=== PATIENT | male | born 1990 | race African-American/Black ===

== ENCOUNTER 2016-12-14 22:57 | Emergency (ER) | payer OTHER ==
[~2016-12-14] VITALS: Ht 185.4 cm; Wt 120.0 kg
[~2016-12-14 22:57] MED LIST: ATARAX,VISTARIL25 MG PO; ATIVAN1 MG PO; AUGMENTIN875 MG PO; BENTYL10 MG PO; MOTRIN800 MG PO; PAXIL20 MG PO; ZOFRAN ODT4 MG PO; ZOFRAN4 MG PO
[2016-12-15] MEDS ORDERED: PERCOCET 5/31 TABLET PO (00:40)
[2016-12-15 00:49] VITALS: BP 112/71
== END 2016-12-15 00:54 | disposition home or self-care (01) ==
LOC: EXP 22:57 → EME 22:57 → EXP 12-15 00:54
PROC: 3E0234Z Introduction of Serum, Toxoid and Vaccine into Muscle, Percutaneous Approach (ICD-10-PCS; principal; 2016-12-14)
DX: S50.812A Abrasion of left forearm, initial encounter (principal); S51.801A Unspecified open wound of right forearm, initial encounter; V29.9XXA Motorcycle rider (driver) (passenger) injured in unspecified traffic accident, initial encounter; F17.200 Nicotine dependence, unspecified, uncomplicated
CPT/HCPCS: 73090; 99281; 99284